=== PATIENT | female | born 1980 | race Caucasian/White ===

== ENCOUNTER 2016-06-05 23:30 | Emergency (ER) | payer OTHER ==
[~2016-06-05] VITALS: Ht 170.2 cm; Wt 118.7 kg
[~2016-06-05 23:30] MED LIST: CYCLOBENZAPRINE10 MG PO; MOTRIN600 MG PO; PERCOCET 5/31 TABLET PO; PREDNISONE10 M1 PO; SKELAXIN800 MG PO; VENTOLIN HFA18 GM IH; ZITHROMAX250 MG PO
[2016-06-05] MEDS ORDERED: LISINOPRIL30 MG PO (23:55)
[2016-06-06] MEDS ORDERED: MEDROL DOSEPAK4 MG PO (01:23)
[2016-06-06] MEDS ORDERED: VISTARIL25 MG PO (01:23)
[2016-06-06 01:33] VITALS: BP 176/90
== END 2016-06-06 01:34 | disposition home or self-care (01) ==
LOC: EME 23:30
DX: L27.0 Generalized skin eruption due to drugs and medicaments taken internally (principal); T46.4X5A Adverse effect of angiotensin-converting-enzyme inhibitors, initial encounter; I10 Essential (primary) hypertension; G35 Multiple sclerosis
CPT/HCPCS: 99281; 99284; J1200; J2930; J7030; Q0177; S0028

== ENCOUNTER 2016-08-07 21:20 | Emergency (ER) | payer OTHER ==
[~2016-08-07] VITALS: Ht 172.7 cm; Wt 119.7 kg
[~2016-08-07 21:20] MED LIST changes: +LISINOPRIL30 MG PO; +MEDROL DOSEPAK4 MG PO; +VISTARIL25 MG PO
[2016-08-07 21:53] LABS: ADD MIUA? YES; BILIRUBIN NEGATIVE; BLOOD LARGE; COLOR YELLOW ((YELLOW)); GLUCOSE (STRIP) NEGATIVE; KETONES NEGATIVE; LEUKOCYTES TRACE; NITRITE NEGATIVE; PROTEIN (STRIP) NEGATIVE; SPECIFIC GRAVITY 1.006 (1.000-1.030); UROBILINOGEN 0.2 MG/DL (0.2-1.0)
[2016-08-07 22:01] LABS: HEMATOCRIT 41.5 % (36.0-46.0); MCH 30.7 PG (29.0-34.0); MCV 90.4 FL (83-99); MEAN PLAT.VOLUME 9.6 uM^3 (9.5-12.4); PLATELET COUNT 287 K/uL (156-360); RBC DIS.WIDTH-CV 12.8 % (11.8-14.6); RED BLOOD COUNT 4.59 M/uL (3.80-5.20); WHITE BLOOD COUNT 11.3 K/uL (4.1-10.2)
[2016-08-07 22:06] LABS: BACTERIA 1+ /HPF; EPITHELIAL CELLS RARE /HPF; MUCUS NONE SEEN /LPF; UCUL ADDED? NO; WHITE BLOOD CELLS 0-5 /HPF (0-5)
[2016-08-07 22:10] LABS: CHLORIDE 107 mEq/L (99-109); POTASSIUM 3.8 mEq/L (3.7-5.4); SODIUM 138 mEq/L (136-147)
[2016-08-07 22:12] LABS: GLUCOSE 85 mg/dL (70-99)
[2016-08-07 22:14] LABS: ANION GAP 12 MEQ/L (2-14); TOTAL BILIRUBIN 0.2 mg/dL (0.0-1.0)
[2016-08-07 22:16] LABS: ALKALINE PHOSPHATASE 64 IU/L (3-129); GFR ESTIMATE (CALCULATED) > 59 mL/min/
[2016-08-07 22:17] LABS: UREA NITROGEN (BUN) 5 mg/dL (9-23)
[2016-08-07 22:25] LABS: QUANTITATIVE HCG < 4.0 MIU/ML
[2016-08-08] MEDS ORDERED: ZOFRAN ODT4 MG PO (02:09)
[2016-08-08] MEDS ORDERED: PERCOCET 5/31 TABLET PO (02:09)
[2016-08-08 02:41] VITALS: BP 157/89
== END 2016-08-08 02:42 | disposition home or self-care (01) ==
LOC: EME 21:20
DX: R10.2 Pelvic and perineal pain (principal); R10.31 Right lower quadrant pain; N20.0 Calculus of kidney; F17.200 Nicotine dependence, unspecified, uncomplicated; Z88.5 Allergy status to narcotic agent; Z90.721 Acquired absence of ovaries, unilateral; Z90.79 Acquired absence of other genital organ(s)
CPT/HCPCS: 74176; 76856; 80053; 81003; 84702; 85027; 99281; 99285; J3010; J7030

== ENCOUNTER 2016-11-27 21:24 | Emergency (ER) | payer OTHER ==
[~2016-11-27] VITALS: Ht 170.2 cm; Wt 119.7 kg
[~2016-11-27 21:24] MED LIST changes: +ZOFRAN ODT4 MG PO
[2016-11-27 22:34] LABS: HEMATOCRIT 42.1 % (36.0-46.0); MCH 30.7 PG (29.0-34.0); MCHC 33.5 G/DL (30.0-36.0); MCV 91.7 FL (83-99); MEAN PLAT.VOLUME 10.1 uM^3 (9.5-12.4); PLATELET COUNT 254 K/uL (156-360); RBC DIS.WIDTH-CV 13.2 % (11.8-14.6); RBC DIS.WIDTH-SD 44.5 % (39-53); RED BLOOD COUNT 4.59 M/uL (3.80-5.20); WHITE BLOOD COUNT 12.8 K/uL (4.1-10.2)
[2016-11-27 22:41] LABS: CHLORIDE 106 mEq/L (99-109); SODIUM 136 mEq/L (136-147)
[2016-11-27 22:43] LABS: GLUCOSE 130 mg/dL (70-99)
[2016-11-27 22:44] LABS: ANION GAP 9 MEQ/L (2-14)
[2016-11-27 22:47] LABS: GFR ESTIMATE (CALCULATED) > 59 mL/min/; UREA NITROGEN (BUN) 9 mg/dL (9-23)
[2016-11-27 22:55] LABS: QUANTITATIVE HCG < 4.0 MIU/ML
[2016-11-27 23:35] LABS: ADD MIUA? YES; BILIRUBIN NEGATIVE; BLOOD SMALL; COLOR YELLOW ((YELLOW)); GLUCOSE (STRIP) NEGATIVE; KETONES NEGATIVE; LEUKOCYTES NEGATIVE; NITRITE NEGATIVE; PROTEIN (STRIP) 30
[2016-11-27 23:42] LABS: BACTERIA RARE /HPF; EPITHELIAL CELLS RARE /HPF; MUCUS TRACE /LPF; RED BLOOD CELLS 0-5 /HPF (0-5); WHITE BLOOD CELLS 0-5 /HPF (0-5)
[2016-11-28 02:37] VITALS: BP 146/77
== END 2016-11-28 02:38 | disposition home or self-care (01) ==
LOC: EME 21:24
PROVIDERS: Physician Assistant
DX: R51 Headache (principal); I10 Essential (primary) hypertension; F17.200 Nicotine dependence, unspecified, uncomplicated
CPT/HCPCS: 70450; 80048; 81003; 83880; 84702; 85027; 99281; 99285; J1200; J1885; J2765; J3030; J7030

== ENCOUNTER 2017-01-31 04:11 | Emergency (ER) | payer OTHER ==
[~2017-01-31] VITALS: Ht 170.2 cm; Wt 118.4 kg
[2017-01-31] MEDS ORDERED: OXYCODONE H5 MG/5 ML PO (04:53)
[2017-01-31] MEDS ORDERED: AMOXICILLI400 MG/5 M PO (04:53)
[2017-01-31 05:19] VITALS: BP 165/84
== END 2017-01-31 05:20 | disposition home or self-care (01) ==
LOC: EME 04:11
DX: J02.9 Acute pharyngitis, unspecified (principal)
CPT/HCPCS: 99281; 99283; J1100